=== PATIENT | male | born 1985 | race Caucasian/White ===

== ENCOUNTER → 2018-04-10 | Outpatient (CLI) | payer BC ==
[2018-04-10 08:18] LABS: EOS # 0.1 (0.04-0.40); EOS % 1.5 % (0.0-4.0); HEMATOCRIT 43.6 % (42.0-52.0); HEMOGLOBIN 14.8 g/dL (13.5-18.0); LYMPH# 1.7 (1.50-4.00); MEAN CELL VOLUME 91 fl (78-100); MEAN CORPUSCULAR HEMOGLOBIN 31 pg (27-31); MEAN CORPUSCULAR HGB CONC 34 g/dL (33-37); MEAN PLATELET VOLUME 9.6 fl (7.4-10.4); MONO # 0.8 (0.20-0.80); NEU # 4.9 (1.40-6.50); PLATELET COUNT 252 K/mm3 (130-400); RED BLOOD COUNT 4.77 M/mm3 (4.20-5.60); RED CELL DISTRIBUTION WIDTH 14.2 % (11.5-14.5); WHITE BLOOD COUNT 7.4 K/mm3 (4.8-10.8)
[2018-04-10 08:52] LABS: ALBUMIN 4.3 g/dL (3.5-5.0); CALCIUM 9.3 mg/dL (8.4-10.2); POTASSIUM 4.1 mmol/L (3.6-5.0); TOTAL PROTEIN 7.4 g/dL (6.3-8.2)
[2018-04-10 10:01] LABS: URINE APPEARANCE CLEAR; URINE BILIRUBIN NEGATIVE (NEGATIVE); URINE BLOOD TRACE (NEGATIVE); URINE COLOR YELLOW; URINE GLUCOSE NEGATIVE (NEGATIVE); URINE KETONE NEGATIVE (NEGATIVE); URINE LEUKOCYTE ESTERASE NEGATIVE (NEGATIVE); URINE NITRATE NEGATIVE (NEGATIVE); URINE PROTEIN(semi-quant) NEGATIVE (NEGATIVE); URINE UROBILINOGEN NORMAL (NORMAL); URINE WBC 0-1 /hpf (0-3)
[2018-04-10 10:02] LABS: URINE MUCUS PRESENT (NOT PRESENT)
== END ==
LOC: LAB 08:02
PROVIDERS: Physician Assistant
DX: Z00.00 Encounter for general adult medical examination without abnormal findings (principal); R53.83 Other fatigue

== ENCOUNTER → 2018-09-13 | Outpatient (CLI) | payer BC ==
[2018-09-13 16:25] LABS: ALBUMIN 4.8 g/dL (3.5-5.0); TOTAL PROTEIN 7.7 g/dL (6.3-8.2)
[2018-09-13 16:29] LABS: EOS # 0.1 (0.04-0.40); HEMATOCRIT 44.2 % (42.0-52.0); HEMOGLOBIN 15.1 g/dL (13.5-18.0); LYMPH# 1.8 (1.50-4.00); MEAN CELL VOLUME 91 fl (78-100); MEAN CORPUSCULAR HEMOGLOBIN 31 pg (27-31); MEAN CORPUSCULAR HGB CONC 34 g/dL (33-37); MEAN PLATELET VOLUME 10.9 fl (7.4-10.4); MONO # 0.7 (0.20-0.80); NEU # 3.7 (1.40-6.50); PLATELET COUNT 263 K/mm3 (130-400); RED BLOOD COUNT 4.84 M/mm3 (4.20-5.60); RED CELL DISTRIBUTION WIDTH 13.9 % (11.5-14.5); WHITE BLOOD COUNT 6.2 K/mm3 (4.8-10.8)
[2018-09-13 17:58] LABS: URINE WBC 0-1 /hpf (0-3)
== END ==
LOC: LAB 15:45
PROVIDERS: Nurse Practitioner Family
DX: R19.09 Other intra-abdominal and pelvic swelling, mass and lump (principal); I87.8 Other specified disorders of veins; R31.0 Gross hematuria

== ENCOUNTER → 2018-10-18 | Outpatient (CLI) | payer BC ==
[2018-10-21 07:38] LABS: URINE APPEARANCE CLEAR; URINE BILIRUBIN NEGATIVE (NEGATIVE); URINE COLOR YELLOW; URINE GLUCOSE NEGATIVE (NEGATIVE); URINE KETONE NEGATIVE (NEGATIVE); URINE NITRATE NEGATIVE (NEGATIVE); URINE PROTEIN(semi-quant) TRACE mg/dL (NEGATIVE); URINE UROBILINOGEN NORMAL (NORMAL)
[2018-10-21 07:39] LABS: URINE BLOOD TRACE (NEGATIVE); URINE LEUKOCYTE ESTERASE NEGATIVE (NEGATIVE); URINE MUCUS PRESENT (NOT PRESENT)
== END ==
LOC: LAB 15:25
PROVIDERS: Urology
DX: N20.0 Calculus of kidney (principal)

== ENCOUNTER → 2018-10-23 | Outpatient (CLI) | payer BC | LOC: RAD 07:24 | DX: N20.1 Calculus of ureter (principal); N20.0 Calculus of kidney; M43.06 Spondylolysis, lumbar region ==

== ENCOUNTER → 2019-03-22 | Outpatient (CLI) | payer BC ==
[~2019-03-22] VITALS: Ht 180.3 cm; Wt 120.5 kg
[~2019-03-22] MED LIST: ACID CONTROL75 MG PO; FLONASE ALLERG9.9 ML NS
[2019-03-22 10:09] VITALS: BP 142/93
[2019-03-22 10:37] LABS: HEMATOCRIT 44.6 % (42.0-52.0); HEMOGLOBIN 15.2 g/dL (13.5-18.0); MEAN PLATELET VOLUME 9.6 fl (7.4-10.4); RED BLOOD COUNT 4.9 M/mm3 (4.20-5.60); RED CELL DISTRIBUTION WIDTH 14.1 % (11.5-14.5); WHITE BLOOD COUNT 5.7 K/mm3 (4.8-10.8)
[2019-03-22 10:54] LABS: ALBUMIN 4.5 g/dL (3.5-5.0); POTASSIUM 4.5 mmol/L (3.5-5.1); SODIUM 140 mmol/L (136-145)
[2019-03-22 10:55] LABS: CALCIUM 9.8 mg/dL (8.3-10.5)
[2019-03-22 10:56] LABS: GLUCOSE 108 mg/dL (75-110)
[2019-03-22 10:57] LABS: TOTAL PROTEIN 8.3 g/dL (6.4-8.3)
[2019-03-22 10:58] LABS: CARBON DIOXIDE 24 mmol/L (22-29)
[2019-03-22 11:02] LABS: AST-SGOT 20 U/L (5-34)
[2019-03-22 11:03] LABS: ALT/SGPT 25 U/L (0-55)
[2019-03-22 11:09] LABS: CKMB ISOENZYME 1.2 ng/mL (0.0-3.5)
[2019-03-22 11:11] LABS: TROPONIN-I < 0.03 ng/mL (<0.030)
== END ==
LOC: AMSURD 09:51
PROVIDERS: Nurse Practitioner
DX: R00.2 Palpitations (principal); R03.0 Elevated blood-pressure reading, without diagnosis of hypertension

== ENCOUNTER → 2019-07-25 | Outpatient (CLI) | payer BC ==
[2019-03-22 10:09] VITALS: BP 142/93
== END ==
LOC: RAD 09:27
DX: N20.0 Calculus of kidney (principal)

== ENCOUNTER → 2019-12-23 | Outpatient (CLI) | payer BC ==
[2019-03-22 10:09] VITALS: BP 142/93
[2019-12-23 15:36] LABS: HEMATOCRIT 41.6 % (42.0-52.0); HEMOGLOBIN 13.9 g/dL (13.5-18.0); MEAN PLATELET VOLUME 9.7 fl (7.4-10.4); RED BLOOD COUNT 4.55 M/mm3 (4.20-5.60); WHITE BLOOD COUNT 5.1 K/mm3 (4.8-10.8)
[2019-12-23 15:42] LABS: POTASSIUM 4.1 mmol/L (3.5-5.1); SODIUM 141 mmol/L (136-145)
[2019-12-23 15:43] LABS: CALCIUM 9.4 mg/dL (8.3-10.5); GLUCOSE 94 mg/dL (75-110)
[2019-12-23 15:45] LABS: CARBON DIOXIDE 24 mmol/L (22-29)
[2019-12-23 16:04] LABS: D-DIMER 0.53 mg/L FEU (0.15-0.50)
[2019-12-23 16:36] LABS: TROPONIN-I < 0.03 ng/mL (<0.030)
== END ==
LOC: LAB 15:08
PROVIDERS: Internal Medicine Interventional Cardiology
DX: I10 Essential (primary) hypertension (principal)

== ENCOUNTER → 2020-02-03 | Outpatient (CLI) | payer BC ==
[2019-03-22 10:09] VITALS: BP 142/93
== END ==
LOC: LAB 13:02
DX: M79.10 Myalgia, unspecified site (principal); R05 Cough; R51 Headache; R06.02 Shortness of breath; R19.7 Diarrhea, unspecified; Z20.828 Contact with and (suspected) exposure to other viral communicable diseases